=== PATIENT | female | born 1965 | race Caucasian/White ===

== ENCOUNTER 2020-12-12 17:02 | Inpatient (IN) | payer OTHER ==
[2020-12-12] MEDS ORDERED: DEXAMETHASONE SOD PHOSPHATE 10 MG/1 ML VIAL IVPUSH ONE (17:28)
[2020-12-12] MEDS ORDERED: DEXAMETHASONE SOD PHOSPHATE 10 MG/1 ML VIAL ONE (17:28)
[2020-12-12 17:44] LABS: BASO % 0.4 % (0-2.0); HEMOGLOBIN 11.8 GM/dL (10.7-15.3); LYMPH % 3.9 % (8-40); MCH 26.6 pg (25.7-33.7); MCHC 32.7 g/dl (32.0-36.0); MEAN CELL VOLUME 81.2 fl (80-96); MEAN PLT VOLUME 8.7 fl (7.5-11.1); MONO % 2.6 % (3.8-10.2); NEUT % 93.1 % (42.8-82.8); PLATELET COUNT 209 K/MM3 (134-434); RBC 4.44 M/mm3 (3.60-5.2); VENOUS BASE EXCESS -2.9 mmol/L (-2-2); VENOUS O2 SATURATION 59.4 % (70-80); VENOUS PCO2 41.3 mmHg (38-52); VENOUS PH 7.353 (7.310-7.410)
[2020-12-12 17:58] LABS: CHLORIDE 105 mmol/L (98-107); INR 0.94 (0.83-1.09); POTASSIUM 4.9 mmol/L (3.5-5.1); PROTHROMBIN TIME (PATIENT) 11.6 SEC (9.7-13.0); SODIUM 138 mmol/L (136-145)
[2020-12-12 18:00] LABS: CALCIUM 8.1 mg/dL (8.5-10.1)
[2020-12-12 18:01] LABS: ACTIVATED PTT 31.5 SECONDS (25.2-36.5); ALBUMIN 3.2 g/dl (3.4-5.0); ANION GAP 8 MMOL/L (8-16); BLOOD UREA NITROGEN 24.4 mg/dL (7-18); CO2 25 mmol/L (21-32); GLUCOSE,RANDOM 143 mg/dL (74-106)
[2020-12-12 18:03] LABS: BILIRUBIN,DIRECT 0.2 mg/dL (0.0-0.2)
[2020-12-12 18:04] LABS: CREATININE 1.1 mg/dL (0.55-1.3); SGOT/AST 65 U/L (15-37); SGPT/ALT 44 U/L (13-61)
[2020-12-12 18:05] LABS: BILIRUBIN,TOTAL 0.4 mg/dL (0.2-1); LDH 673 U/L (84-246); TOT PROT 7.6 g/dl (6.4-8.2)
[2020-12-12 18:06] LABS: ALK PHOS 113 U/L (45-117)
[2020-12-12] MEDS ORDERED: ONDANSETRON 4 MG/2 ML VIAL IVPUSH ONE (18:29)
[2020-12-12] MEDS ORDERED: LACTATED RINGERS SOLUTION 1000 ML INFUS.BAG IV ONE (18:30)
[2020-12-12] MEDS ORDERED: ENOXAPARIN NA (PORCINE) 40 MG/0.4 ML DISP.SYRIN SQ ONE ×2 (18:54→19:48)
[2020-12-12] MEDS ORDERED: ONDANSETRON 4 MG/2 ML VIAL ONE (19:07)
[2020-12-12 19:35] LABS: ANISOCYTOSIS 2+; MACROCYTOSIS 0; OVALOCYTE 1+; PLATELET ESTIMATE NORMAL
[2020-12-12 20:33] LABS: ARTERIAL BLD GAS O2 SATURATION 46.9 mmHg (95-98); ARTERIAL BLOOD GAS BASE EXCESS -4.1 mmol/L (-2-2)
[2020-12-12 20:39] LABS: ARTERIAL BLOOD GAS PO2 25.9 mmHg (80-100)
[2020-12-12 20:42] LABS: EPI CELLS 3 /uL (0-25.1); HYALINE CASTS 1 /uL (0-3.1); PH,URINE 5.5 (5.0-8.0); URINE APPEARANCE CLOUDY; URINE BACTERIA >9,000 /uL (0-1359); URINE BILIRUBIN NEGATIVE (NEGATIVE); URINE COLOR YELLOW; URINE GLUCOSE (UA) NEGATIVE (NEGATIVE); URINE KETONE NEGATIVE (NEGATIVE); URINE LEUK ESTERASE 2+ (NEGATIVE); URINE NITRITE POSITIVE (NEGATIVE); URINE PROTEIN 1+ (NEGATIVE); URINE RBC 484 /uL (0-23.9); URINE UROBILINOGEN 0.2 mg/dL (0.2-1.0); URINE WBC 293 /uL (0-25.8)
[2020-12-12] MEDS: CHLORHEXIDINE GLUCONATE 4% CLEANSER FOR DECOLONIZATION TP SCH (23:41)
[2020-12-12] MEDS: MUPIROCIN 2% TOPICAL OINTMENT FOR DECOLONIZATION NS SCH (23:42)
[2020-12-13 06:45] LABS: BASO % 0.1 % (0-2.0); HEMATOCRIT 33.2 % (32.4-45.2); HEMOGLOBIN 10.9 GM/dL (10.7-15.3); LYMPH % 7.6 % (8-40); MCH 26.4 pg (25.7-33.7); MCHC 32.7 g/dl (32.0-36.0); MEAN CELL VOLUME 80.6 fl (80-96); MEAN PLT VOLUME 8.4 fl (7.5-11.1); MONO % 5.5 % (3.8-10.2); NEUT % 86.8 % (42.8-82.8); PLATELET COUNT 212 K/MM3 (134-434); RBC 4.12 M/mm3 (3.60-5.2); RDW 16.7 % (11.6-15.6); WHITE BLOOD COUNT 4.9 K/mm3 (4.0-10.0)
[2020-12-13 06:52] LABS: INR 1.02 (0.83-1.09); PROTHROMBIN TIME (PATIENT) 12.5 SEC (9.7-13.0)
[2020-12-13] MEDS ORDERED: GABAPENTIN 300 MG CAPSULE PO ONE (07:00)
[2020-12-13] MEDS ORDERED: DEXAMETHASONE SOD PHOSPHATE 4 MG/1 ML VIAL IVPUSH ONE (07:00)
[2020-12-13] MEDS ORDERED: PANTOPRAZOLE SODIUM 40 MG VIAL IVPUSH ONE (07:00)
[2020-12-13 07:07] LABS: POTASSIUM 4.9 mmol/L (3.5-5.1)
[2020-12-13 07:14] LABS: ALBUMIN 2.8 g/dl (3.4-5.0); BLOOD UREA NITROGEN 21.6 mg/dL (7-18)
[2020-12-13 07:16] LABS: BILIRUBIN,TOTAL 0.5 mg/dL (0.2-1)
[2020-12-13 07:18] LABS: CREATININE 0.8 mg/dL (0.55-1.3)
[2020-12-13] MEDS ORDERED: CEFTRIAXONE 1 GM in DEXTROSE 5%-WATER - 50 ML IVPB ONE (09:15)
[2020-12-13] MEDS ORDERED: cefTRIAXone SODIUM 1 GM VIAL ONE (10:35)
[2020-12-13] MEDS ORDERED: DEXTROSE 5%-WATER - 50 ML IVPB ONE (10:35)
[2020-12-13] MEDS: MUPIROCIN 2% TOPICAL OINTMENT FOR DECOLONIZATION NS SCH ×2 (10:45→21:12)
[2020-12-13] MEDS ORDERED: PT OWN MED DRAWER 7, Y5N ONE (10:49)
[2020-12-13] MEDS: HYDROXYCHLOROQUINE SO4 200 MG TABLET (FP) PO SCH (11:45)
[2020-12-13] MEDS ORDERED: REMDESIVIR 200 MG in SODIUM CHLORIDE 210 ML IVPB ONE (15:00)
[2020-12-13] MEDS: ENOXAPARIN NA (PORCINE) 40 MG/0.4 ML DISP.SYRIN SQ SCH (15:12)
[2020-12-13] MEDS ORDERED: ALBUTEROL SO4 2.5/IPRATROPIUM 0.5 INH SOL 3 ML VIAL.NEB. NEB SCH (16:00)
[2020-12-13] MEDS: CHLORHEXIDINE GLUCONATE 4% CLEANSER FOR DECOLONIZATION TP SCH (21:08)
[2020-12-13] MEDS: BUDESONIDE/FORMETEROL FUMARATE 160/4.5 mcg INHALER IH SCH (21:12)
[2020-12-13] MEDS: ALBUTEROL SO4 HFA INHALER IH SCH ×2 (21:39→21:40)
[2020-12-14 07:01] LABS: BASO % 0.1 % (0-2.0); HEMATOCRIT 33.4 % (32.4-45.2); LYMPH % 7.4 % (8-40); MCH 26.8 pg (25.7-33.7); MCHC 32.8 g/dl (32.0-36.0); MEAN CELL VOLUME 81.5 fl (80-96); MEAN PLT VOLUME 8.7 fl (7.5-11.1); MONO % 3.6 % (3.8-10.2); NEUT % 88.9 % (42.8-82.8); PLATELET COUNT 267 K/MM3 (134-434); RDW 16.6 % (11.6-15.6); WHITE BLOOD COUNT 7.5 K/mm3 (4.0-10.0)
[2020-12-14 07:51] LABS: POTASSIUM 4.7 mmol/L (3.5-5.1)
[2020-12-14 08:25] LABS: ALBUMIN 2.7 g/dl (3.4-5.0); BLOOD UREA NITROGEN 26.1 mg/dL (7-18); CREATININE 0.8 mg/dL (0.55-1.3)
[2020-12-14 08:27] LABS: BILIRUBIN,TOTAL 0.4 mg/dL (0.2-1); MAGNESIUM 2.3 mg/dL (1.8-2.4); TOT PROT 6.8 g/dl (6.4-8.2)
[2020-12-14 08:28] LABS: PHOSPHOROUS 2.9 mg/dL (2.5-4.9)
[2020-12-14] MEDS ORDERED: PT OWN MED DRAWER 7, Y5N ONE ×3 (09:11→15:28)
[2020-12-14] MEDS ORDERED: DEXTROSE 5%-WATER - 50 ML IVPB ONE (09:12)
[2020-12-14] MEDS ORDERED: cefTRIAXone SODIUM 1 GM VIAL ONE (09:12)
[2020-12-14] MEDS: DEXAMETHASONE SOD PHOSPHATE 4 MG/1 ML VIAL IVPUSH SCH (09:17)
[2020-12-14] MEDS: ENOXAPARIN NA (PORCINE) 40 MG/0.4 ML DISP.SYRIN SQ SCH (09:17)
[2020-12-14] MEDS: CEFTRIAXONE 1 GM in DEXTROSE 5%-WATER - 50 ML IVPB SCH (09:17)
[2020-12-14] MEDS: HYDROXYCHLOROQUINE SO4 200 MG TABLET (FP) PO SCH (09:18)
[2020-12-14] MEDS: BUDESONIDE/FORMETEROL FUMARATE 160/4.5 mcg INHALER IH SCH ×2 (09:19→22:01)
[2020-12-14] MEDS: MUPIROCIN 2% TOPICAL OINTMENT FOR DECOLONIZATION NS SCH ×2 (09:19→22:01)
[2020-12-14] MEDS ORDERED: IBUPROFEN 600 MG TABLET (FP) PO PRN (12:03)
[2020-12-14] MEDS ORDERED: ENOXAPARIN NA (PORCINE) 40 MG/0.4 ML DISP.SYRIN SQ ONE (12:25)
[2020-12-14] MEDS: COLCHICINE 0.6 MG CAP PO SCH (14:32)
[2020-12-14] MEDS: azaTHIOprine 50 MG TABLET PO SCH (14:33)
[2020-12-14] MEDS: REMDESIVIR 100 MG in SODIUM CHLORIDE 230 ML IVPB SCH (14:55)
[2020-12-14] MEDS: ENOXAPARIN NA (PORCINE) 80 MG/0.8 ML DISP.SYRIN SQ SCH (22:00)
[2020-12-14] MEDS: CHLORHEXIDINE GLUCONATE 4% CLEANSER FOR DECOLONIZATION TP SCH (22:01)
[2020-12-14] MEDS: ALBUTEROL SO4 HFA INHALER IH SCH (22:01)
[2020-12-14] MEDS ORDERED: SODIUM CHLORIDE NASAL SPRAY 44 ML BOTTLE NS PRN (22:19)
[2020-12-15] MEDS ORDERED: ONDANSETRON 4 MG/2 ML VIAL ONE (00:26)
[2020-12-15] MEDS: TRIMETHOBENZAMIDE HCL 200MG/2ML INJ IM PRN ×2 (00:28→09:25)
[2020-12-15] MEDS: MAGNESIUM HYDROX 2400MG/30ML ORAL SUSPENSION 30 ML CUP PO PRN ×2 (03:18→21:58)
[2020-12-15] MEDS: guaiFENesin 200 MG/10 ML 10 ML UNIT-DOSE CUPS PO PRN ×2 (03:18→21:58)
[2020-12-15] MEDS: IBUPROFEN 400 MG TABLET (FP) PO PRN ×2 (03:33→18:45)
[2020-12-15] MEDS ORDERED: SODIUM CHLORIDE 500 ML IV STA ×2 (05:07→06:18)
[2020-12-15] MEDS: ALBUTEROL SO4 HFA INHALER IH SCH ×5 (06:06→21:58)
[2020-12-15 07:13] LABS: BASO % 0.6 % (0-2.0); EOS % 0.6 % (0-4.5); HEMATOCRIT 30.8 % (32.4-45.2); HEMOGLOBIN 10.1 GM/dL (10.7-15.3); LYMPH % 2.8 % (8-40); MCH 26.4 pg (25.7-33.7); MCHC 32.8 g/dl (32.0-36.0); MEAN CELL VOLUME 80.3 fl (80-96); MONO % 1.4 % (3.8-10.2); NEUT % 94.6 % (42.8-82.8); PLATELET COUNT 278 K/MM3 (134-434); RBC 3.83 M/mm3 (3.60-5.2); RDW 16.8 % (11.6-15.6); WHITE BLOOD COUNT 7.5 K/mm3 (4.0-10.0)
[2020-12-15 07:32] LABS: POTASSIUM 4.1 mmol/L (3.5-5.1)
[2020-12-15 07:42] LABS: ALBUMIN 2.4 g/dl (3.4-5.0); BLOOD UREA NITROGEN 27.1 mg/dL (7-18); CALCIUM 7.6 mg/dL (8.5-10.1); MAGNESIUM 2.3 mg/dL (1.8-2.4)
[2020-12-15 07:45] LABS: CREATININE 0.8 mg/dL (0.55-1.3); PHOSPHOROUS 2.8 mg/dL (2.5-4.9)
[2020-12-15 07:47] LABS: BILIRUBIN,TOTAL 1.3 mg/dL (0.2-1); TOT PROT 6.1 g/dl (6.4-8.2)
[2020-12-15] MEDS ORDERED: DEXTROSE 5%-WATER - 50 ML IVPB ONE (08:51)
[2020-12-15] MEDS ORDERED: cefTRIAXone SODIUM 1 GM VIAL ONE (08:51)
[2020-12-15] MEDS ORDERED: PT OWN MED DRAWER 7, Y5N ONE ×3 (08:54→18:43)
[2020-12-15] MEDS ORDERED: ENOXAPARIN NA (PORCINE) 80 MG/0.8 ML DISP.SYRIN SQ SCH (09:00)
[2020-12-15] MEDS: CEFTRIAXONE 1 GM in DEXTROSE 5%-WATER - 50 ML IVPB SCH (09:19)
[2020-12-15] MEDS: ENOXAPARIN NA (PORCINE) 80 MG/0.8 ML DISP.SYRIN SQ SCH ×2 (09:21→21:57)
[2020-12-15] MEDS: DEXAMETHASONE SOD PHOSPHATE 4 MG/1 ML VIAL IVPUSH SCH (09:22)
[2020-12-15] MEDS: HYDROXYCHLOROQUINE SO4 200 MG TABLET (FP) PO SCH (09:23)
[2020-12-15] MEDS: MUPIROCIN 2% TOPICAL OINTMENT FOR DECOLONIZATION NS SCH ×2 (09:24→21:58)
[2020-12-15] MEDS: COLCHICINE 0.6 MG CAP PO SCH (09:24)
[2020-12-15] MEDS: BUDESONIDE/FORMETEROL FUMARATE 160/4.5 mcg INHALER IH SCH ×2 (09:25→21:58)
[2020-12-15 09:51] LABS: ANISOCYTOSIS 0; MACROCYTOSIS 0; PLATELET ESTIMATE NORMAL
[2020-12-15] MEDS: azaTHIOprine 50 MG TABLET PO SCH (11:55)
[2020-12-15] MEDS ORDERED: SODIUM CHLORIDE 1,000 ML IV ONE (11:56)
[2020-12-15] MEDS: SODIUM CHLORIDE 1,000 ML IV SCH (12:06)
[2020-12-15] MEDS: REMDESIVIR 100 MG in SODIUM CHLORIDE 230 ML IVPB SCH (14:57)
[2020-12-15] MEDS ORDERED: TOCILIZUMAB (ACTEMRA) 200 MG/10 ML VIAL IVPB ONE (17:15)
[2020-12-15] MEDS ORDERED: TOCILIZUMAB 600 MG in SODIUM CHLORIDE 70 ML IVPB ONE (18:00)
[2020-12-15] MEDS: CHLORHEXIDINE GLUCONATE 4% CLEANSER FOR DECOLONIZATION TP SCH (21:58)
[2020-12-16] MEDS ORDERED: ONDANSETRON 4 MG/2 ML VIAL IVPUSH ONE (00:18)
[2020-12-16 07:36] LABS: HEMATOCRIT 28.8 % (32.4-45.2); HEMOGLOBIN 9.4 GM/dL (10.7-15.3); MCH 26.6 pg (25.7-33.7); MCHC 32.5 g/dl (32.0-36.0); MEAN CELL VOLUME 81.9 fl (80-96); MEAN PLT VOLUME 8.5 fl (7.5-11.1); PLATELET COUNT 300 K/MM3 (134-434); RBC 3.52 M/mm3 (3.60-5.2); RDW 16.4 % (11.6-15.6); WHITE BLOOD COUNT 5.9 K/mm3 (4.0-10.0)
[2020-12-16 07:57] LABS: POTASSIUM 4.6 mmol/L (3.5-5.1)
[2020-12-16 07:59] LABS: CALCIUM 7.7 mg/dL (8.5-10.1)
[2020-12-16 08:00] LABS: ALBUMIN 2.1 g/dl (3.4-5.0); BLOOD UREA NITROGEN 24.1 mg/dL (7-18)
[2020-12-16 08:03] LABS: CREATININE 0.6 mg/dL (0.55-1.3)
[2020-12-16 08:05] LABS: TOT PROT 5.6 g/dl (6.4-8.2)
[2020-12-16 08:36] LABS: BILIRUBIN,TOTAL 0.7 mg/dL (0.2-1)
[2020-12-16] MEDS ORDERED: PT OWN MED DRAWER 7, Y5N ONE ×2 (09:23→15:41)
[2020-12-16] MEDS ORDERED: DEXTROSE 5%-WATER - 50 ML IVPB ONE (09:24)
[2020-12-16] MEDS ORDERED: cefTRIAXone SODIUM 1 GM VIAL ONE (09:24)
[2020-12-16] MEDS: DEXAMETHASONE SOD PHOSPHATE 4 MG/1 ML VIAL IVPUSH SCH (09:26)
[2020-12-16] MEDS: CEFTRIAXONE 1 GM in DEXTROSE 5%-WATER - 50 ML IVPB SCH (09:26)
[2020-12-16] MEDS: ENOXAPARIN NA (PORCINE) 80 MG/0.8 ML DISP.SYRIN SQ SCH ×2 (09:27→21:35)
[2020-12-16] MEDS: COLCHICINE 0.6 MG CAP PO SCH (09:28)
[2020-12-16] MEDS: azaTHIOprine 50 MG TABLET PO SCH (09:28)
[2020-12-16] MEDS: ALBUTEROL SO4 HFA INHALER IH SCH ×4 (09:29→21:25)
[2020-12-16] MEDS: MUPIROCIN 2% TOPICAL OINTMENT FOR DECOLONIZATION NS SCH ×2 (09:29→23:07)
[2020-12-16] MEDS: HYDROXYCHLOROQUINE SO4 200 MG TABLET (FP) PO SCH (09:29)
[2020-12-16] MEDS: BUDESONIDE/FORMETEROL FUMARATE 160/4.5 mcg INHALER IH SCH ×2 (09:29→23:07)
[2020-12-16] MEDS: SODIUM CHLORIDE 1,000 ML IV SCH (12:20)
[2020-12-16] MEDS: REMDESIVIR 100 MG in SODIUM CHLORIDE 230 ML IVPB SCH (15:45)
[2020-12-16 21:29] LABS: ARTERIAL BLD GAS O2 SATURATION 93.2 mmHg (95-98); ARTERIAL BLOOD GAS BASE EXCESS -4.3 mmol/L (-2-2); ARTERIAL BLOOD GAS PO2 64.7 mmHg (80-100)
[2020-12-16 21:30] LABS: ALLENS TEST POSITIVE
[2020-12-16] MEDS ORDERED: FAMOTIDINE 20 MG TABLET PO SCH (22:00)
[2020-12-16] MEDS: CHLORHEXIDINE GLUCONATE 4% CLEANSER FOR DECOLONIZATION TP SCH (23:07)
[2020-12-17 02:32] LABS: MAGNESIUM 2.5 mg/dL (1.8-2.4)
[2020-12-17 02:34] LABS: PHOSPHOROUS 3.4 mg/dL (2.5-4.9)
[2020-12-17] MEDS ORDERED: ETOMIDATE 20 MG/10 ML AMPUL IVPUSH ONE ×2 (04:35→05:25)
[2020-12-17] MEDS ORDERED: PHENYLEPHRINE HCL 10 MG/1 ML SINGLE DOSE VIAL IVPB ONE ×2 (04:35→05:00)
[2020-12-17] MEDS ORDERED: SUCCINYLCHOLINE CHLORIDE 200 MG/10 ML VIAL IVPUSH ONE ×2 (04:35→05:23)
[2020-12-17] MEDS ORDERED: FENTANYL IVPB 500 MCG/100 ML BAG IVPB ONE (04:44)
[2020-12-17] MEDS ORDERED: MIDAZOLAM 100 MG/100 ML MG IVPB ONE (04:44)
[2020-12-17] MEDS ORDERED: FENTANYL NS IVPB 500 MCG/100 ML BAG IVPB SCH (04:45)
[2020-12-17] MEDS ORDERED: MIDAZOLAM HCL 2 MG/2 ML SINGLE DOSE VIAL IVPUSH ONE (04:50)
[2020-12-17] MEDS ORDERED: PROPOFOL 200 MG/20 ML VIAL IVPUSH ONE ×2 (04:50→05:42)
[2020-12-17] MEDS ORDERED: MIDAZOLAM 100 MG/100 ML MG IVPB SCH (06:15)
[2020-12-17 06:37] LABS: HEMATOCRIT 31.9 % (32.4-45.2); HEMOGLOBIN 10.2 GM/dL (10.7-15.3); MCH 26.8 pg (25.7-33.7); MCHC 32.1 g/dl (32.0-36.0); MEAN CELL VOLUME 83.6 fl (80-96); MEAN PLT VOLUME 8.2 fl (7.5-11.1); PLATELET COUNT 409 K/MM3 (134-434); RBC 3.81 M/mm3 (3.60-5.2); WHITE BLOOD COUNT 10.6 K/mm3 (4.0-10.0)
[2020-12-17 07:24] LABS: POTASSIUM 4.8 mmol/L (3.5-5.1)
[2020-12-17 07:26] LABS: ALBUMIN 2.2 g/dl (3.4-5.0); CALCIUM 7.7 mg/dL (8.5-10.1)
[2020-12-17 07:29] LABS: CREATININE 0.6 mg/dL (0.55-1.3)
[2020-12-17 07:31] LABS: TOT PROT 5.9 g/dl (6.4-8.2)
[2020-12-17 07:59] LABS: BILIRUBIN,TOTAL 0.3 mg/dL (0.2-1)
[2020-12-17 08:08] LABS: ARTERIAL BLD GAS O2 SATURATION 76.8 mmHg (95-98); ARTERIAL BLOOD GAS BASE EXCESS -13.4 mmol/L (-2-2); ARTERIAL BLOOD GAS PO2 59.3 mmHg (80-100)
[2020-12-17] MEDS: PROPOFOL 1,000,000 MCG/100 ML VIAL IVPB SCH (08:10)
[2020-12-17] MEDS: VECURONIUM BROMIDE 100 MG/100 ML BAG IVPB SCH (08:13)
[2020-12-17 08:16] LABS: ALLENS TEST POSITIVE
[2020-12-17 08:18] LABS: ARTERIAL BLOOD GAS pH 7.037 (7.350-7.450); VENT RATE 12
[2020-12-17] MEDS ORDERED: PT OWN MED DRAWER 7, Y5N ONE ×2 (09:43→10:20)
[2020-12-17] MEDS ORDERED: cefTRIAXone SODIUM 1 GM VIAL ONE (09:43)
[2020-12-17] MEDS ORDERED: DEXTROSE 5%-WATER - 50 ML IVPB ONE (09:44)
[2020-12-17] MEDS: HYDROXYCHLOROQUINE SO4 200 MG TABLET (FP) PO SCH (10:13)
[2020-12-17] MEDS: FAMOTIDINE 20 MG/50 ML IVPB 20 MG/50 ML MG IVPB SCH ×2 (10:13→22:41)
[2020-12-17] MEDS: COLCHICINE 0.6 MG CAP PO SCH (10:15)
[2020-12-17] MEDS: DEXAMETHASONE SOD PHOSPHATE 4 MG/1 ML VIAL IVPUSH SCH (10:16)
[2020-12-17] MEDS: ENOXAPARIN NA (PORCINE) 80 MG/0.8 ML DISP.SYRIN SQ SCH ×2 (10:17→22:40)
[2020-12-17] MEDS: CEFTRIAXONE 1 GM in DEXTROSE 5%-WATER - 50 ML IVPB SCH (10:22)
[2020-12-17] MEDS: MUPIROCIN 2% TOPICAL OINTMENT FOR DECOLONIZATION NS SCH (10:30)
[2020-12-17] MEDS: ALBUTEROL SO4 HFA INHALER IH SCH ×4 (11:28→22:28)
[2020-12-17] MEDS: BUDESONIDE/FORMETEROL FUMARATE 160/4.5 mcg INHALER IH SCH ×2 (11:29→22:29)
[2020-12-17] MEDS: SODIUM CHLORIDE 1,000 ML IV SCH (12:00)
[2020-12-17] MEDS ORDERED: SODIUM CHLORIDE 500 ML IV STA (12:23)
[2020-12-17] MEDS ORDERED: MAGNESIUM HYDROX 2400MG/30ML ORAL SUSPENSION 30 ML CUP NGT PRN (12:26)
[2020-12-17] MEDS ORDERED: VASOPRESSIN 20 UNITS/ML VIAL IV ONE (13:14)
[2020-12-17] MEDS: azaTHIOprine 50 MG TABLET NGT SCH (13:17)
[2020-12-17] MEDS: VASOPRESSIN 40 UNITS in SODIUM CHLORIDE 98 ML IVPB SCH (13:21)
[2020-12-17] MEDS: REMDESIVIR 100 MG in SODIUM CHLORIDE 230 ML IVPB SCH (15:21)
[2020-12-17 18:25] LABS: MAGNESIUM 2.1 mg/dL (1.8-2.4)
[2020-12-17 18:28] LABS: PHOSPHOROUS 4.7 mg/dL (2.5-4.9)
[2020-12-17 20:31] LABS: ARTERIAL BLD GAS O2 SATURATION 88.3 mmHg (95-98); ARTERIAL BLOOD GAS BASE EXCESS -8.5 mmol/L (-2-2); ARTERIAL BLOOD GAS PO2 64.5 mmHg (80-100); ARTERIAL BLOOD GAS pH 7.221 (7.350-7.450)
[2020-12-17 20:32] LABS: ALLENS TEST POSITIVE
[2020-12-17 20:33] LABS: VENT MODE A/C; VENT RATE 28
[2020-12-17] MEDS: CHLORHEXIDINE GLUCONATE 4% CLEANSER FOR DECOLONIZATION TP SCH (22:28)
[2020-12-18 07:04] LABS: HEMATOCRIT 29.9 % (32.4-45.2); HEMOGLOBIN 9.7 GM/dL (10.7-15.3); MCH 27.1 pg (25.7-33.7); MCHC 32.4 g/dl (32.0-36.0); MEAN CELL VOLUME 83.6 fl (80-96); MEAN PLT VOLUME 8.4 fl (7.5-11.1); PLATELET COUNT 330 K/MM3 (134-434); RBC 3.58 M/mm3 (3.60-5.2); RDW 16.8 % (11.6-15.6); WHITE BLOOD COUNT 7.8 K/mm3 (4.0-10.0)
[2020-12-18 07:18] LABS: POTASSIUM 4.9 mmol/L (3.5-5.1)
[2020-12-18 07:24] LABS: ALBUMIN 2.1 g/dl (3.4-5.0); BLOOD UREA NITROGEN 35.8 mg/dL (7-18); CALCIUM 7.9 mg/dL (8.5-10.1)
[2020-12-18 07:27] LABS: CREATININE 0.8 mg/dL (0.55-1.3)
[2020-12-18 07:28] LABS: TOT PROT 5.6 g/dl (6.4-8.2)
[2020-12-18 07:49] LABS: BILIRUBIN,TOTAL 0.6 mg/dL (0.2-1)
[2020-12-18] MEDS ORDERED: DEXTROSE 5%-WATER - 50 ML IVPB ONE (09:41)
[2020-12-18] MEDS ORDERED: PT OWN MED DRAWER 7, Y5N ONE (09:41)
[2020-12-18] MEDS ORDERED: cefTRIAXone SODIUM 1 GM VIAL ONE (09:41)
[2020-12-18] MEDS ORDERED: VASOPRESSIN 20 UNITS/ML VIAL IV ONE ×2 (10:00→18:18)
[2020-12-18] MEDS: ENOXAPARIN NA (PORCINE) 80 MG/0.8 ML DISP.SYRIN SQ SCH ×2 (10:02→22:31)
[2020-12-18] MEDS: FAMOTIDINE 20 MG/50 ML IVPB 20 MG/50 ML MG IVPB SCH ×2 (10:02→22:31)
[2020-12-18] MEDS: DEXAMETHASONE SOD PHOSPHATE 4 MG/1 ML VIAL IVPUSH SCH (10:02)
[2020-12-18] MEDS: COLCHICINE 0.6 MG CAP PO SCH (10:02)
[2020-12-18] MEDS: CEFTRIAXONE 1 GM in DEXTROSE 5%-WATER - 50 ML IVPB SCH (10:03)
[2020-12-18] MEDS: HYDROXYCHLOROQUINE 200 MG/8 ML ORAL SUSPENSION NGT SCH (10:03)
[2020-12-18] MEDS ORDERED: FUROSEMIDE 40 MG/4 ML INJECTABLE VIAL IVPUSH ONE (11:30)
[2020-12-18] MEDS: PROPOFOL 1,000,000 MCG/100 ML VIAL IVPB SCH (12:04)
[2020-12-18] MEDS: BUDESONIDE/FORMETEROL FUMARATE 160/4.5 mcg INHALER IH SCH (12:04)
[2020-12-18] MEDS: azaTHIOprine 50 MG TABLET NGT SCH (14:45)
[2020-12-18] MEDS: FENTANYL IVPB 500 MCG/100 ML BAG IVPB SCH (15:16)
[2020-12-18] MEDS: VASOPRESSIN 40 UNITS in SODIUM CHLORIDE 98 ML IVPB SCH (15:30)
[2020-12-18] MEDS: ALBUTEROL SO4 HFA INHALER IH SCH (19:39)
[2020-12-18] MEDS: azaTHIOprine 50 MG TABLET PO SCH (19:39)
[2020-12-18] MEDS ORDERED: MIDAZOLAM 100 MG/100 ML MG IVPB ONE (19:49)
[2020-12-18] MEDS: CHLORHEXIDINE GLUCONATE 4% CLEANSER FOR DECOLONIZATION TP SCH (22:31)
[2020-12-19] MEDS: PROPOFOL 1,000,000 MCG/100 ML VIAL IVPB SCH (08:00)
[2020-12-19 08:10] LABS: HEMATOCRIT 29.8 % (32.4-45.2); HEMOGLOBIN 9.4 GM/dL (10.7-15.3); MCH 26.4 pg (25.7-33.7); MCHC 31.7 g/dl (32.0-36.0); MEAN CELL VOLUME 83.3 fl (80-96); MEAN PLT VOLUME 8.4 fl (7.5-11.1); PLATELET COUNT 315 K/MM3 (134-434); RBC 3.58 M/mm3 (3.60-5.2); RDW 17.1 % (11.6-15.6); WHITE BLOOD COUNT 7.6 K/mm3 (4.0-10.0)
[2020-12-19 08:29] LABS: POTASSIUM 4.6 mmol/L (3.5-5.1)
[2020-12-19 08:37] LABS: BLOOD UREA NITROGEN 27.9 mg/dL (7-18); CALCIUM 8.2 mg/dL (8.5-10.1)
[2020-12-19 08:38] LABS: MAGNESIUM 2.3 mg/dL (1.8-2.4)
[2020-12-19 08:40] LABS: CREATININE 0.6 mg/dL (0.55-1.3); PHOSPHOROUS 2.9 mg/dL (2.5-4.9)
[2020-12-19] MEDS ORDERED: PT OWN MED DRAWER 7, Y5N ONE (09:22)
[2020-12-19] MEDS ORDERED: cefTRIAXone SODIUM 1 GM VIAL ONE (09:23)
[2020-12-19] MEDS ORDERED: DEXTROSE 5%-WATER - 50 ML IVPB ONE (09:23)
[2020-12-19] MEDS: ENOXAPARIN NA (PORCINE) 80 MG/0.8 ML DISP.SYRIN SQ SCH ×2 (09:41→21:31)
[2020-12-19] MEDS: DEXAMETHASONE SOD PHOSPHATE 4 MG/1 ML VIAL IVPUSH SCH (09:42)
[2020-12-19] MEDS: CEFTRIAXONE 1 GM in DEXTROSE 5%-WATER - 50 ML IVPB SCH (09:43)
[2020-12-19] MEDS: FAMOTIDINE 20 MG/50 ML IVPB 20 MG/50 ML MG IVPB SCH ×2 (09:50→21:31)
[2020-12-19] MEDS: azaTHIOprine 50 MG TABLET NGT SCH (09:51)
[2020-12-19] MEDS: HYDROXYCHLOROQUINE 200 MG/8 ML ORAL SUSPENSION NGT SCH (09:57)
[2020-12-19] MEDS: FENTANYL IVPB 500 MCG/100 ML BAG IVPB SCH (10:00)
[2020-12-19] MEDS: COLCHICINE 0.6 MG CAP PO SCH (10:12)
[2020-12-19] MEDS ORDERED: MIDAZOLAM 100 MG/100 ML MG IVPB ONE ×2 (13:32→20:21)
[2020-12-19] MEDS ORDERED: TRIPLE LUMEN FLUSH 4 ML ML IVPUSH PRN (14:01)
[2020-12-19] MEDS ORDERED: VASOPRESSIN 20 UNITS/ML VIAL IV ONE (14:53)
[2020-12-19] MEDS: REMDESIVIR 100 MG in SODIUM CHLORIDE 230 ML IVPB SCH (15:00)
[2020-12-19] MEDS: VASOPRESSIN 40 UNITS in SODIUM CHLORIDE 98 ML IVPB SCH (15:00)
[2020-12-19] MEDS: VECURONIUM BROMIDE 100 MG/100 ML BAG IVPB SCH (15:00)
[2020-12-19] MEDS: CHLORHEXIDINE GLUCONATE 4% CLEANSER FOR DECOLONIZATION TP SCH (21:31)
[2020-12-20] MEDS: MIDAZOLAM 100 MG/100 ML MG IVPB SCH (07:00)
[2020-12-20] MEDS ORDERED: MIDAZOLAM 100 MG/100 ML MG IVPB ONE (07:16)
[2020-12-20 07:42] LABS: BASO % 0.1 % (0-2.0); EOS % 1.3 % (0-4.5); HEMATOCRIT 28.4 % (32.4-45.2); HEMOGLOBIN 9.2 GM/dL (10.7-15.3); MCH 26.6 pg (25.7-33.7); MCHC 32.4 g/dl (32.0-36.0); MEAN CELL VOLUME 82.1 fl (80-96); MEAN PLT VOLUME 8.1 fl (7.5-11.1); MONO % 2.4 % (3.8-10.2); NEUT % 93.2 % (42.8-82.8); PLATELET COUNT 269 K/MM3 (134-434); RBC 3.46 M/mm3 (3.60-5.2); RDW 16.7 % (11.6-15.6); WHITE BLOOD COUNT 8.8 K/mm3 (4.0-10.0)
[2020-12-20] MEDS: PROPOFOL 1,000,000 MCG/100 ML VIAL IVPB SCH (07:42)
[2020-12-20 08:06] LABS: POTASSIUM 4.6 mmol/L (3.5-5.1)
[2020-12-20 08:15] LABS: BLOOD UREA NITROGEN 26.9 mg/dL (7-18); MAGNESIUM 2.3 mg/dL (1.8-2.4)
[2020-12-20 08:18] LABS: CREATININE 0.5 mg/dL (0.55-1.3)
[2020-12-20 08:19] LABS: PHOSPHOROUS 2.6 mg/dL (2.5-4.9)
[2020-12-20] MEDS ORDERED: PT OWN MED DRAWER 7, Y5N ONE ×2 (09:55→18:34)
[2020-12-20] MEDS ORDERED: DEXTROSE 5%-WATER - 50 ML IVPB ONE (09:56)
[2020-12-20] MEDS ORDERED: cefTRIAXone SODIUM 1 GM VIAL ONE (09:56)
[2020-12-20] MEDS: ENOXAPARIN NA (PORCINE) 80 MG/0.8 ML DISP.SYRIN SQ SCH ×2 (09:58→21:08)
[2020-12-20] MEDS: CEFTRIAXONE 1 GM in DEXTROSE 5%-WATER - 50 ML IVPB SCH (09:58)
[2020-12-20] MEDS: HYDROXYCHLOROQUINE 200 MG/8 ML ORAL SUSPENSION NGT SCH (09:58)
[2020-12-20] MEDS: FAMOTIDINE 20 MG/50 ML IVPB 20 MG/50 ML MG IVPB SCH ×2 (09:58→21:08)
[2020-12-20] MEDS: COLCHICINE 0.6 MG CAP PO SCH (09:59)
[2020-12-20] MEDS: DEXAMETHASONE SOD PHOSPHATE 4 MG/1 ML VIAL IVPUSH SCH (09:59)
[2020-12-20] MEDS: azaTHIOprine 50 MG TABLET NGT SCH (10:00)
[2020-12-20 10:28] LABS: ANISOCYTOSIS 0; HELMET CELLS 0; HOWELL-JOLLY BODIES 0; MACROCYTOSIS 0; OVALOCYTE 0; PLATELET ESTIMATE NORMAL; ROULEAU 0; SICKELED CELLS 0; TARGET CELLS 0; TEAR DROP CELLS 0; TOXIC GRANULATION 0
[2020-12-20] MEDS: REMDESIVIR 100 MG in SODIUM CHLORIDE 230 ML IVPB SCH (10:34)
[2020-12-20] MEDS: VASOPRESSIN 40 UNITS in SODIUM CHLORIDE 98 ML IVPB SCH (14:09)
[2020-12-20] MEDS: FENTANYL IVPB 500 MCG/100 ML BAG IVPB SCH ×2 (15:00→19:30)
[2020-12-20] MEDS: VECURONIUM BROMIDE 100 MG/100 ML BAG IVPB SCH (19:00)
[2020-12-20] MEDS: CHLORHEXIDINE GLUCONATE 4% CLEANSER FOR DECOLONIZATION TP SCH (21:07)
[2020-12-21] MEDS: MIDAZOLAM 100 MG/100 ML MG IVPB SCH ×2 (01:00→20:07)
[2020-12-21] MEDS: FENTANYL IVPB 500 MCG/100 ML BAG IVPB SCH ×2 (02:17→17:07)
[2020-12-21 07:56] LABS: BASO % 0.1 % (0-2.0); EOS % 0.9 % (0-4.5); HEMOGLOBIN 9.7 GM/dL (10.7-15.3); LYMPH % 3.3 % (8-40); MCH 26.7 pg (25.7-33.7); MCHC 32.4 g/dl (32.0-36.0); MEAN CELL VOLUME 82.4 fl (80-96); MEAN PLT VOLUME 8.5 fl (7.5-11.1); MONO % 2.8 % (3.8-10.2); NEUT % 92.9 % (42.8-82.8); PLATELET COUNT 286 K/MM3 (134-434); RBC 3.64 M/mm3 (3.60-5.2); RDW 16.9 % (11.6-15.6); WHITE BLOOD COUNT 10.7 K/mm3 (4.0-10.0)
[2020-12-21] MEDS ORDERED: POTASSIUM CHLORIDE 20 MEQ PREMIX IVPB 100 ML IVPB SCH (08:30)
[2020-12-21 08:31] LABS: POTASSIUM 4.2 mmol/L (3.5-5.1)
[2020-12-21 08:34] LABS: ALBUMIN 2.4 g/dl (3.4-5.0); BLOOD UREA NITROGEN 24.9 mg/dL (7-18); CALCIUM 7.9 mg/dL (8.5-10.1); MAGNESIUM 2.4 mg/dL (1.8-2.4)
[2020-12-21 08:36] LABS: CREATININE 0.5 mg/dL (0.55-1.3)
[2020-12-21 08:37] LABS: PHOSPHOROUS 2.4 mg/dL (2.5-4.9)
[2020-12-21 08:39] LABS: TOT PROT 5.7 g/dl (6.4-8.2)
[2020-12-21 08:44] LABS: BILIRUBIN,TOTAL 0.2 mg/dL (0.2-1)
[2020-12-21] MEDS: PROPOFOL 1,000,000 MCG/100 ML VIAL IVPB SCH (09:49)
[2020-12-21] MEDS: DEXAMETHASONE SOD PHOSPHATE 4 MG/1 ML VIAL IVPUSH SCH (09:50)
[2020-12-21] MEDS: ENOXAPARIN NA (PORCINE) 80 MG/0.8 ML DISP.SYRIN SQ SCH ×3 (09:50→22:37)
[2020-12-21] MEDS: FAMOTIDINE 20 MG/50 ML IVPB 20 MG/50 ML MG IVPB SCH ×2 (09:51→21:11)
[2020-12-21] MEDS: REMDESIVIR 100 MG in SODIUM CHLORIDE 230 ML IVPB SCH (10:21)
[2020-12-21] MEDS: azaTHIOprine 50 MG TABLET NGT SCH (10:30)
[2020-12-21] MEDS ORDERED: PT OWN MED DRAWER 7, Y5N ONE (10:44)
[2020-12-21] MEDS: COLCHICINE 0.6 MG CAP PO SCH (10:46)
[2020-12-21] MEDS: HYDROXYCHLOROQUINE 200 MG/8 ML ORAL SUSPENSION NGT SCH (10:46)
[2020-12-21 11:15] LABS: ANISOCYTOSIS 0; MACROCYTOSIS 0; PLATELET ESTIMATE NORMAL
[2020-12-21] MEDS: VASOPRESSIN 40 UNITS in SODIUM CHLORIDE 98 ML IVPB SCH (17:06)
[2020-12-21] MEDS: POLYETHYLENE GLYCOL 3350 119 GM BTL PO SCH (17:08)
[2020-12-21] MEDS: CHLORHEXIDINE GLUCONATE 4% CLEANSER FOR DECOLONIZATION TP SCH (21:11)
[2020-12-22] MEDS: FENTANYL IVPB 500 MCG/100 ML BAG IVPB SCH ×3 (01:00→16:41)
[2020-12-22] MEDS: VECURONIUM BROMIDE 100 MG/100 ML BAG IVPB SCH (06:00)
[2020-12-22] MEDS ORDERED: PT OWN MED DRAWER 7, Y5N ONE (09:13)
[2020-12-22] MEDS: HYDROXYCHLOROQUINE 200 MG/8 ML ORAL SUSPENSION NGT SCH (09:18)
[2020-12-22] MEDS: FAMOTIDINE 20 MG/50 ML IVPB 20 MG/50 ML MG IVPB SCH ×2 (09:18→21:01)
[2020-12-22] MEDS: POLYETHYLENE GLYCOL 3350 119 GM BTL PO SCH (09:18)
[2020-12-22] MEDS: azaTHIOprine 50 MG TABLET NGT SCH (09:19)
[2020-12-22] MEDS: DEXAMETHASONE SOD PHOSPHATE 4 MG/1 ML VIAL IVPUSH SCH (09:19)
[2020-12-22] MEDS: ENOXAPARIN NA (PORCINE) 80 MG/0.8 ML DISP.SYRIN SQ SCH ×2 (09:19→21:01)
[2020-12-22] MEDS: PROPOFOL 1,000,000 MCG/100 ML VIAL IVPB SCH (09:20)
[2020-12-22] MEDS: MIDAZOLAM 100 MG/100 ML MG IVPB SCH (09:20)
[2020-12-22] MEDS: REMDESIVIR 100 MG in SODIUM CHLORIDE 230 ML IVPB SCH (10:28)
[2020-12-22] MEDS: COLCHICINE 0.6 MG CAP PO SCH (10:28)
[2020-12-22] MEDS ORDERED: DOCUSATE NA 100 MG/10 ML UNIT-DOSE CUPS PO PRN (13:07)
[2020-12-22] MEDS: VASOPRESSIN 40 UNITS in SODIUM CHLORIDE 98 ML IVPB SCH (16:40)
[2020-12-22] MEDS: CHLORHEXIDINE GLUCONATE 4% CLEANSER FOR DECOLONIZATION TP SCH (21:01)
[2020-12-23] MEDS ORDERED: MIDAZOLAM 100 MG/100 ML MG IVPB ONE (00:32)
[2020-12-23] MEDS: FENTANYL IVPB 500 MCG/100 ML BAG IVPB SCH ×3 (03:00→23:00)
[2020-12-23] MEDS: MIDAZOLAM 100 MG/100 ML MG IVPB SCH ×2 (04:00→21:21)
[2020-12-23] MEDS: VECURONIUM BROMIDE 100 MG/100 ML BAG IVPB SCH (05:00)
[2020-12-23 07:48] LABS: POTASSIUM 4.8 mmol/L (3.5-5.1)
[2020-12-23 07:51] LABS: ALBUMIN 2.5 g/dl (3.4-5.0); CALCIUM 7.9 mg/dL (8.5-10.1)
[2020-12-23 07:52] LABS: BLOOD UREA NITROGEN 24.7 mg/dL (7-18)
[2020-12-23 07:54] LABS: CREATININE 0.4 mg/dL (0.55-1.3)
[2020-12-23 07:56] LABS: TOT PROT 5.6 g/dl (6.4-8.2)
[2020-12-23 08:03] LABS: BILIRUBIN,TOTAL 0.6 mg/dL (0.2-1)
[2020-12-23] MEDS ORDERED: PT OWN MED DRAWER 7, Y5N ONE ×2 (09:24→14:40)
[2020-12-23] MEDS: FAMOTIDINE 20 MG/50 ML IVPB 20 MG/50 ML MG IVPB SCH ×2 (09:32→21:25)
[2020-12-23] MEDS: ENOXAPARIN NA (PORCINE) 80 MG/0.8 ML DISP.SYRIN SQ SCH ×2 (09:32→21:25)
[2020-12-23] MEDS: DEXAMETHASONE SOD PHOSPHATE 4 MG/1 ML VIAL IVPUSH SCH (09:33)
[2020-12-23] MEDS: COLCHICINE 0.6 MG CAP PO SCH (09:34)
[2020-12-23] MEDS: POLYETHYLENE GLYCOL 3350 119 GM BTL PO SCH (09:44)
[2020-12-23] MEDS: azaTHIOprine 50 MG TABLET NGT SCH (14:42)
[2020-12-23] MEDS: HYDROXYCHLOROQUINE 200 MG/8 ML ORAL SUSPENSION NGT SCH (14:42)
[2020-12-23] MEDS: VASOPRESSIN 40 UNITS in SODIUM CHLORIDE 98 ML IVPB SCH (14:43)
[2020-12-23] MEDS: PROPOFOL 1,000,000 MCG/100 ML VIAL IVPB SCH (15:58)
[2020-12-23] MEDS: CHLORHEXIDINE GLUCONATE 4% CLEANSER FOR DECOLONIZATION TP SCH (21:26)
[2020-12-24] MEDS: MIDAZOLAM 100 MG/100 ML MG IVPB SCH ×2 (01:44→17:21)
[2020-12-24 07:47] LABS: POTASSIUM 4.6 mmol/L (3.5-5.1)
[2020-12-24 08:19] LABS: ALBUMIN 2.3 g/dl (3.4-5.0); BILIRUBIN,TOTAL 0.7 mg/dL (0.2-1); BLOOD UREA NITROGEN 23.8 mg/dL (7-18); CALCIUM 7.9 mg/dL (8.5-10.1); CREATININE 0.4 mg/dL (0.55-1.3); TOT PROT 5.4 g/dl (6.4-8.2)
[2020-12-24] MEDS ORDERED: PT OWN MED DRAWER 7, Y5N ONE (09:34)
[2020-12-24] MEDS: azaTHIOprine 50 MG TABLET NGT SCH (09:44)
[2020-12-24] MEDS: FENTANYL IVPB 500 MCG/100 ML BAG IVPB SCH ×2 (09:44→17:20)
[2020-12-24] MEDS: HYDROXYCHLOROQUINE 200 MG/8 ML ORAL SUSPENSION NGT SCH (09:45)
[2020-12-24] MEDS: ENOXAPARIN NA (PORCINE) 80 MG/0.8 ML DISP.SYRIN SQ SCH ×2 (09:45→21:27)
[2020-12-24] MEDS: FAMOTIDINE 20 MG/50 ML IVPB 20 MG/50 ML MG IVPB SCH ×2 (09:45→21:26)
[2020-12-24] MEDS: POLYETHYLENE GLYCOL 3350 119 GM BTL PO SCH (09:46)
[2020-12-24] MEDS: DEXAMETHASONE SOD PHOSPHATE 4 MG/1 ML VIAL IVPUSH SCH (09:46)
[2020-12-24] MEDS: COLCHICINE 0.6 MG CAP PO SCH (09:47)
[2020-12-24] MEDS: VECURONIUM BROMIDE 100 MG/100 ML BAG IVPB SCH (17:20)
[2020-12-24] MEDS: VASOPRESSIN 40 UNITS in SODIUM CHLORIDE 98 ML IVPB SCH (17:21)
[2020-12-24] MEDS: PROPOFOL 1,000,000 MCG/100 ML VIAL IVPB SCH (17:22)
[2020-12-24] MEDS: CHLORHEXIDINE GLUCONATE 4% CLEANSER FOR DECOLONIZATION TP SCH (21:18)
[2020-12-25] MEDS: FENTANYL IVPB 500 MCG/100 ML BAG IVPB SCH
[2020-12-25] MEDS: MIDAZOLAM 100 MG/100 ML MG IVPB SCH ×2 (06:14→10:36)
[2020-12-25 07:54] LABS: POTASSIUM 5.1 mmol/L (3.5-5.1)
[2020-12-25 07:56] LABS: CALCIUM 7.9 mg/dL (8.5-10.1)
[2020-12-25 07:57] LABS: ALBUMIN 2.4 g/dl (3.4-5.0); BLOOD UREA NITROGEN 28.7 mg/dL (7-18); MAGNESIUM 2.2 mg/dL (1.8-2.4)
[2020-12-25 08:00] LABS: CREATININE 0.5 mg/dL (0.55-1.3); PHOSPHOROUS 3.4 mg/dL (2.5-4.9)
[2020-12-25 08:02] LABS: BILIRUBIN,TOTAL 0.6 mg/dL (0.2-1); TOT PROT 5.6 g/dl (6.4-8.2)
[2020-12-25] MEDS ORDERED: PT OWN MED DRAWER 7, Y5N ONE (10:30)
[2020-12-25] MEDS: PROPOFOL 1,000,000 MCG/100 ML VIAL IVPB SCH (10:36)
[2020-12-25] MEDS: COLCHICINE 0.6 MG CAP PO SCH (10:37)
[2020-12-25] MEDS: azaTHIOprine 50 MG TABLET NGT SCH (10:37)
[2020-12-25] MEDS: POLYETHYLENE GLYCOL 3350 119 GM BTL PO SCH (10:38)
[2020-12-25] MEDS: ENOXAPARIN NA (PORCINE) 80 MG/0.8 ML DISP.SYRIN SQ SCH ×2 (10:39→21:33)
[2020-12-25] MEDS: FAMOTIDINE 20 MG/50 ML IVPB 20 MG/50 ML MG IVPB SCH ×2 (10:39→21:33)
[2020-12-25] MEDS: DEXAMETHASONE SOD PHOSPHATE 4 MG/1 ML VIAL IVPUSH SCH (10:40)
[2020-12-25] MEDS: HYDROXYCHLOROQUINE 200 MG/8 ML ORAL SUSPENSION NGT SCH (11:51)
[2020-12-25] MEDS: VASOPRESSIN 40 UNITS in SODIUM CHLORIDE 98 ML IVPB SCH (13:16)
[2020-12-25] MEDS: VECURONIUM BROMIDE 100 MG/100 ML BAG IVPB SCH (15:42)
[2020-12-25] MEDS ORDERED: FENTANYL IVPB 500 MCG/100 ML BAG IVPB ONE (16:56)
[2020-12-25] MEDS: CHLORHEXIDINE GLUCONATE 4% CLEANSER FOR DECOLONIZATION TP SCH (21:32)
[2020-12-26] MEDS: FENTANYL NS IVPB 500 MCG/100 ML BAG IVPB SCH ×3 (01:00→23:00)
[2020-12-26] MEDS: MIDAZOLAM 100 MG/100 ML MG IVPB SCH ×2 (01:00→09:41)
[2020-12-26 07:18] LABS: BASO % 0.3 % (0-2.0); EOS % 0.6 % (0-4.5); HEMOGLOBIN 9.4 GM/dL (10.7-15.3); LYMPH % 6.2 % (8-40); MCH 27.4 pg (25.7-33.7); MCHC 32.6 g/dl (32.0-36.0); MEAN CELL VOLUME 84.1 fl (80-96); MEAN PLT VOLUME 8.9 fl (7.5-11.1); NEUT % 88.9 % (42.8-82.8); PLATELET COUNT 185 K/MM3 (134-434); RBC 3.44 M/mm3 (3.60-5.2)
[2020-12-26 07:38] LABS: POTASSIUM 4.8 mmol/L (3.5-5.1)
[2020-12-26 07:47] LABS: CALCIUM 8.2 mg/dL (8.5-10.1)
[2020-12-26 07:48] LABS: ALBUMIN 2.5 g/dl (3.4-5.0); BLOOD UREA NITROGEN 25.7 mg/dL (7-18)
[2020-12-26 07:51] LABS: CREATININE 0.4 mg/dL (0.55-1.3)
[2020-12-26 07:52] LABS: BILIRUBIN,TOTAL 0.8 mg/dL (0.2-1)
[2020-12-26 07:53] LABS: TOT PROT 5.5 g/dl (6.4-8.2)
[2020-12-26] MEDS: VECURONIUM BROMIDE 100 MG/100 ML BAG IVPB SCH (09:37)
[2020-12-26] MEDS: PROPOFOL 1,000,000 MCG/100 ML VIAL IVPB SCH (09:37)
[2020-12-26] MEDS ORDERED: PT OWN MED DRAWER 7, Y5N ONE (09:39)
[2020-12-26] MEDS: HYDROXYCHLOROQUINE 200 MG/8 ML ORAL SUSPENSION NGT SCH (09:41)
[2020-12-26] MEDS: ENOXAPARIN NA (PORCINE) 80 MG/0.8 ML DISP.SYRIN SQ SCH ×2 (09:41→21:21)
[2020-12-26] MEDS: POLYETHYLENE GLYCOL 3350 119 GM BTL PO SCH (09:41)
[2020-12-26] MEDS: DEXAMETHASONE SOD PHOSPHATE 4 MG/1 ML VIAL IVPUSH SCH (09:41)
[2020-12-26] MEDS: COLCHICINE 0.6 MG CAP PO SCH (09:41)
[2020-12-26] MEDS: FAMOTIDINE 20 MG/50 ML IVPB 20 MG/50 ML MG IVPB SCH ×2 (09:41→21:21)
[2020-12-26] MEDS: azaTHIOprine 50 MG TABLET NGT SCH (11:37)
[2020-12-26 14:30] VITALS: BMI 32.5
[2020-12-26] MEDS: VASOPRESSIN 40 UNITS in SODIUM CHLORIDE 98 ML IVPB SCH (16:23)
[2020-12-26] MEDS: CHLORHEXIDINE GLUCONATE 4% CLEANSER FOR DECOLONIZATION TP SCH (21:21)
[2020-12-27 00:26] LABS: URINE APPEARANCE CLEAR; URINE BILIRUBIN NEGATIVE (NEGATIVE); URINE COLOR YELLOW; URINE GLUCOSE (UA) 3+ (NEGATIVE); URINE KETONE NEGATIVE (NEGATIVE); URINE LEUK ESTERASE NEGATIVE (NEGATIVE); URINE NITRITE NEGATIVE (NEGATIVE); URINE PROTEIN NEGATIVE (NEGATIVE)
[2020-12-27 06:56] LABS: BASO % 0.4 % (0-2.0); HEMATOCRIT 26.5 % (32.4-45.2); HEMOGLOBIN 8.8 GM/dL (10.7-15.3); LYMPH % 4.5 % (8-40); MCH 28.1 pg (25.7-33.7); MCHC 33.2 g/dl (32.0-36.0); MEAN CELL VOLUME 84.7 fl (80-96); MEAN PLT VOLUME 8.8 fl (7.5-11.1); MONO % 3.2 % (3.8-10.2); NEUT % 90.9 % (42.8-82.8); PLATELET COUNT 151 K/MM3 (134-434); RBC 3.13 M/mm3 (3.60-5.2); RDW 16.7 % (11.6-15.6); WHITE BLOOD COUNT 9.1 K/mm3 (4.0-10.0)
[2020-12-27 07:13] LABS: POTASSIUM 4.1 mmol/L (3.5-5.1)
[2020-12-27 07:19] LABS: ALBUMIN 2.4 g/dl (3.4-5.0); BLOOD UREA NITROGEN 23.6 mg/dL (7-18); CALCIUM 7.8 mg/dL (8.5-10.1); MAGNESIUM 1.9 mg/dL (1.8-2.4)
[2020-12-27 07:22] LABS: CREATININE 0.4 mg/dL (0.55-1.3)
[2020-12-27 07:24] LABS: BILIRUBIN,TOTAL 0.7 mg/dL (0.2-1); TOT PROT 5.3 g/dl (6.4-8.2)
[2020-12-27] MEDS: FAMOTIDINE 20 MG/50 ML IVPB 20 MG/50 ML MG IVPB SCH ×2 (09:45→21:22)
[2020-12-27] MEDS: DEXAMETHASONE SOD PHOSPHATE 4 MG/1 ML VIAL IVPUSH SCH (09:47)
[2020-12-27] MEDS: ENOXAPARIN NA (PORCINE) 80 MG/0.8 ML DISP.SYRIN SQ SCH ×2 (09:47→21:22)
[2020-12-27] MEDS ORDERED: PT OWN MED DRAWER 7, Y5N ONE (09:49)
[2020-12-27] MEDS: COLCHICINE 0.6 MG CAP PO SCH (10:52)
[2020-12-27] MEDS: azaTHIOprine 50 MG TABLET NGT SCH (11:30)
[2020-12-27] MEDS: POLYETHYLENE GLYCOL 3350 119 GM BTL PO SCH (11:30)
[2020-12-27] MEDS: HYDROXYCHLOROQUINE 200 MG/8 ML ORAL SUSPENSION NGT SCH (11:30)
[2020-12-27] MEDS: PROPOFOL 1,000,000 MCG/100 ML VIAL IVPB SCH (12:08)
[2020-12-27] MEDS ORDERED: MIDAZOLAM 100 MG/100 ML MG IVPB ONE (18:04)
[2020-12-27] MEDS: VASOPRESSIN 40 UNITS in SODIUM CHLORIDE 98 ML IVPB SCH (21:17)
[2020-12-27] MEDS: CHLORHEXIDINE GLUCONATE 4% CLEANSER FOR DECOLONIZATION TP SCH (21:22)
[2020-12-27] MEDS: FENTANYL NS IVPB 500 MCG/100 ML BAG IVPB SCH (22:45)
[2020-12-28] MEDS ORDERED: FENTANYL NS IVPB 500 MCG/100 ML BAG IVPB ONE (06:50)
[2020-12-28 06:56] LABS: BASO % 0.3 % (0-2.0); EOS % 1.3 % (0-4.5); HEMATOCRIT 27.3 % (32.4-45.2); HEMOGLOBIN 9.1 GM/dL (10.7-15.3); LYMPH % 5.4 % (8-40); MCH 28.3 pg (25.7-33.7); MCHC 33.3 g/dl (32.0-36.0); MEAN PLT VOLUME 9.4 fl (7.5-11.1); MONO % 2.7 % (3.8-10.2); NEUT % 90.3 % (42.8-82.8); PLATELET COUNT 96 K/MM3 (134-434); RBC 3.21 M/mm3 (3.60-5.2); RDW 16.9 % (11.6-15.6); WHITE BLOOD COUNT 7.6 K/mm3 (4.0-10.0)
[2020-12-28 07:20] LABS: POTASSIUM 4.2 mmol/L (3.5-5.1)
[2020-12-28 07:22] LABS: CALCIUM 7.7 mg/dL (8.5-10.1)
[2020-12-28 07:23] LABS: ALBUMIN 2.4 g/dl (3.4-5.0); BLOOD UREA NITROGEN 23.1 mg/dL (7-18); MAGNESIUM 1.9 mg/dL (1.8-2.4)
[2020-12-28 07:26] LABS: CREATININE 0.3 mg/dL (0.55-1.3)
[2020-12-28 07:27] LABS: BILIRUBIN,TOTAL 0.6 mg/dL (0.2-1); TOT PROT 5.4 g/dl (6.4-8.2)
[2020-12-28] MEDS ORDERED: SODIUM CHLORIDE 1,000 ML IV SCH (08:30)
[2020-12-28] MEDS ORDERED: PT OWN MED DRAWER 7, Y5N ONE (09:22)
[2020-12-28] MEDS: FAMOTIDINE 20 MG/50 ML IVPB 20 MG/50 ML MG IVPB SCH ×2 (10:30→21:31)
[2020-12-28] MEDS: ENOXAPARIN NA (PORCINE) 80 MG/0.8 ML DISP.SYRIN SQ SCH ×2 (11:00→21:31)
[2020-12-28] MEDS: DEXAMETHASONE SOD PHOSPHATE 4 MG/1 ML VIAL IVPUSH SCH (11:30)
[2020-12-28] MEDS: COLCHICINE 0.6 MG CAP PO SCH (12:08)
[2020-12-28] MEDS: azaTHIOprine 50 MG TABLET NGT SCH (12:08)
[2020-12-28] MEDS: POLYETHYLENE GLYCOL 3350 119 GM BTL PO SCH (12:33)
[2020-12-28] MEDS: HYDROXYCHLOROQUINE 200 MG/8 ML ORAL SUSPENSION NGT SCH (12:33)
[2020-12-28] MEDS: PROPOFOL 1,000,000 MCG/100 ML VIAL IVPB SCH (12:34)
[2020-12-28] MEDS: VASOPRESSIN 40 UNITS in SODIUM CHLORIDE 98 ML IVPB SCH (17:21)
[2020-12-28] MEDS: CHLORHEXIDINE GLUCONATE 4% CLEANSER FOR DECOLONIZATION TP SCH (21:31)
[2020-12-28] MEDS: FENTANYL NS IVPB 500 MCG/100 ML BAG IVPB SCH (22:55)
[2020-12-28] MEDS: DEXMEDETOMIDINE IN 0.9 % NACL 400 MCG/100 ML VIAL IVPB SCH (23:25)
[2020-12-29] MEDS ORDERED: SODIUM CHLORIDE 0.9% 500 ML INFUS.BAG IV PRN (02:46)
[2020-12-29] MEDS ORDERED: MIDAZOLAM 100 MG/100 ML MG IVPB SCH (04:30)
[2020-12-29 07:28] LABS: HEMATOCRIT 23.8 % (32.4-45.2); HEMOGLOBIN 7.7 GM/dL (10.7-15.3); MCHC 32.4 g/dl (32.0-36.0); MEAN CELL VOLUME 86.5 fl (80-96); MEAN PLT VOLUME 9.1 fl (7.5-11.1); PLATELET COUNT 113 K/MM3 (134-434); RBC 2.75 M/mm3 (3.60-5.2); RDW 16.8 % (11.6-15.6); WHITE BLOOD COUNT 6.2 K/mm3 (4.0-10.0)
[2020-12-29 08:02] LABS: POTASSIUM 3.6 mmol/L (3.5-5.1)
[2020-12-29 08:10] LABS: ALBUMIN 2.1 g/dl (3.4-5.0); BLOOD UREA NITROGEN 21.1 mg/dL (7-18); CALCIUM 7.5 mg/dL (8.5-10.1)
[2020-12-29 08:11] LABS: MAGNESIUM 1.9 mg/dL (1.8-2.4)
[2020-12-29 08:14] LABS: CREATININE 0.3 mg/dL (0.55-1.3)
[2020-12-29 08:15] LABS: BILIRUBIN,TOTAL 0.6 mg/dL (0.2-1); TOT PROT 4.7 g/dl (6.4-8.2)
[2020-12-29] MEDS ORDERED: PT OWN MED DRAWER 7, Y5N ONE ×2 (09:19→11:30)
[2020-12-29] MEDS: FAMOTIDINE 20 MG/50 ML IVPB 20 MG/50 ML MG IVPB SCH ×2 (09:25→21:44)
[2020-12-29] MEDS: DEXAMETHASONE SOD PHOSPHATE 4 MG/1 ML VIAL IVPUSH SCH (09:25)
[2020-12-29] MEDS: COLCHICINE 0.6 MG CAP PO SCH (09:25)
[2020-12-29] MEDS: POLYETHYLENE GLYCOL 3350 119 GM BTL PO SCH (09:26)
[2020-12-29] MEDS: HYDROXYCHLOROQUINE 200 MG/8 ML ORAL SUSPENSION NGT SCH (09:26)
[2020-12-29] MEDS: ENOXAPARIN NA (PORCINE) 80 MG/0.8 ML DISP.SYRIN SQ SCH (11:03)
[2020-12-29] MEDS: azaTHIOprine 50 MG TABLET NGT SCH (12:25)
[2020-12-29] MEDS: FENTANYL NS IVPB 500 MCG/100 ML BAG IVPB SCH ×2 (12:26→22:32)
[2020-12-29] MEDS: PROPOFOL 1,000,000 MCG/100 ML VIAL IVPB SCH (12:26)
[2020-12-29] MEDS: VASOPRESSIN 40 UNITS in SODIUM CHLORIDE 98 ML IVPB SCH (15:26)
[2020-12-29] MEDS: CHLORHEXIDINE GLUCONATE 4% CLEANSER FOR DECOLONIZATION TP SCH (21:44)
[2020-12-30 07:21] LABS: BASO % 0.2 % (0-2.0); EOS % 3.5 % (0-4.5); HEMATOCRIT 26.8 % (32.4-45.2); HEMOGLOBIN 8.7 GM/dL (10.7-15.3); LYMPH % 6.8 % (8-40); MCH 28.1 pg (25.7-33.7); MCHC 32.2 g/dl (32.0-36.0); MEAN CELL VOLUME 87.1 fl (80-96); MEAN PLT VOLUME 8.9 fl (7.5-11.1); MONO % 1.8 % (3.8-10.2); NEUT % 87.7 % (42.8-82.8); PLATELET COUNT 114 K/MM3 (134-434); RBC 3.08 M/mm3 (3.60-5.2); WHITE BLOOD COUNT 7.3 K/mm3 (4.0-10.0)
[2020-12-30 07:50] LABS: POTASSIUM 3.7 mmol/L (3.5-5.1)
[2020-12-30 07:58] LABS: CALCIUM 8.1 mg/dL (8.5-10.1)
[2020-12-30 07:59] LABS: ALBUMIN 2.4 g/dl (3.4-5.0); BLOOD UREA NITROGEN 14.2 mg/dL (7-18)
[2020-12-30 08:02] LABS: CREATININE 0.2 mg/dL (0.55-1.3)
[2020-12-30 08:04] LABS: BILIRUBIN,TOTAL 0.6 mg/dL (0.2-1); TOT PROT 5.3 g/dl (6.4-8.2)
[2020-12-30] MEDS ORDERED: fentaNYL CITRATE 250 MCG/5 ML VIAL IVPUSH ONE (08:13)
[2020-12-30] MEDS ORDERED: PT OWN MED DRAWER 7, Y5N ONE ×4 (09:10→10:50)
[2020-12-30] MEDS: PROPOFOL 1,000,000 MCG/100 ML VIAL IVPB SCH ×2 (09:17→09:45)
[2020-12-30] MEDS: DEXAMETHASONE SOD PHOSPHATE 4 MG/1 ML VIAL IVPUSH SCH (09:23)
[2020-12-30] MEDS: FAMOTIDINE 20 MG/50 ML IVPB 20 MG/50 ML MG IVPB SCH ×2 (09:23→21:16)
[2020-12-30] MEDS: HYDROXYCHLOROQUINE 200 MG/8 ML ORAL SUSPENSION NGT SCH (10:51)
[2020-12-30] MEDS: azaTHIOprine 50 MG TABLET NGT SCH (10:51)
[2020-12-30] MEDS: COLCHICINE 0.6 MG CAP PO SCH (11:33)
[2020-12-30] MEDS: POLYETHYLENE GLYCOL 3350 119 GM BTL PO SCH (11:35)
[2020-12-30] MEDS ORDERED: ACETAMINOPHEN 1000 MG/100 ML VIAL (NON FORMULARY) IVPB ONE ×2 (14:16→21:34)
[2020-12-30] MEDS ORDERED: ACETAMINOPHEN INJECTION 100 ML IVPB ONE (14:41)
[2020-12-30] MEDS: VASOPRESSIN 40 UNITS in SODIUM CHLORIDE 98 ML IVPB SCH (15:13)
[2020-12-30] MEDS: DEXMEDETOMIDINE IN 0.9 % NACL 400 MCG/100 ML VIAL IVPB SCH ×3 (15:57→23:17)
[2020-12-30] MEDS: CHLORHEXIDINE GLUCONATE 4% CLEANSER FOR DECOLONIZATION TP SCH (21:16)
[2020-12-30] MEDS: FENTANYL NS IVPB 500 MCG/100 ML BAG IVPB SCH (21:17)
[2020-12-30] MEDS ORDERED: VECURONIUM BROMIDE 100 MG/100 ML BAG ONE (22:59)
[2020-12-30] MEDS ORDERED: VECURONIUM BROMIDE 10 MG/10 ML VIAL ONE (23:00)
[2020-12-30] MEDS ORDERED: VECURONIUM BROMIDE 50 MG/50 ML VIAL IVPUSH ONE (23:04)
[2020-12-30] MEDS ORDERED: VASOPRESSIN 20 UNITS/ML VIAL IV ONE (23:05)
[2020-12-30] MEDS ORDERED: LACTATED RINGERS SOLUTION 1000 ML INFUS.BAG IV ONE (23:06)
[2020-12-30] MEDS ORDERED: IBUPROFEN 800 MG/8 ML IJ IVPB ONE (23:29)
[2020-12-30] MEDS ORDERED: VANCOMYCIN 1 GRAM (PRE-DOCKED) 1,000 MG/250 ML BAG IVPB ONE (23:30)
[2020-12-30] MEDS: PIPERACILLIN/TAZOB 4.5 GM 4.5 GM in DEXTROSE 5%-WATER 100 ML IVPB SCH (23:45)
[2020-12-31] MEDS ORDERED: NOREPINEPHRINE BITARTRATE 8,000 MCG/500 ML BAG IVPB ONE ×2 (00:19→06:27)
[2020-12-31] MEDS ORDERED: NOREPINEPHRINE D5W PREMIX 16,000 MCG/500 ML BAG IVPB SCH (00:30)
[2020-12-31] MEDS ORDERED: MIDAZOLAM 100 MG/100 ML MG IVPB ONE (01:17)
[2020-12-31] MEDS ORDERED: DEXTROSE 5%-WATER 100 ML IVPB ONE (01:18)
[2020-12-31] MEDS ORDERED: PIPERACILLIN/TAZOBACTAM 4.5 GM VIAL IVPB ONE (01:18)
[2020-12-31] MEDS ORDERED: VASOPRESSIN 20 UNITS/ML VIAL IV ONE ×2 (01:21→08:05)
[2020-12-31] MEDS ORDERED: VECURONIUM BROMIDE 100 MG/100 ML BAG IVPB SCH (02:00)
[2020-12-31] MEDS ORDERED: ENOXAPARIN NA (PORCINE) 80 MG/0.8 ML DISP.SYRIN SQ SCH (02:00)
[2020-12-31] MEDS: PIPERACILLIN/TAZOB 4.5 GM 4.5 GM in DEXTROSE 5%-WATER 100 ML IVPB SCH (02:39)
[2020-12-31 02:59] VITALS: TEMP 99.2
[2020-12-31 07:02] LABS: HEMATOCRIT 30.3 % (32.4-45.2); MCH 28.3 pg (25.7-33.7); MCHC 29.8 g/dl (32.0-36.0); MEAN CELL VOLUME 95.1 fl (80-96); MEAN PLT VOLUME 9.5 fl (7.5-11.1); PLATELET COUNT 135 K/MM3 (134-434); RBC 3.18 M/mm3 (3.60-5.2); RDW 18.9 % (11.6-15.6)
[2020-12-31 07:06] LABS: WHITE BLOOD COUNT 1.1 K/mm3 (4.0-10.0)
[2020-12-31 08:13] LABS: ALBUMIN 1.8 g/dl (3.4-5.0); BILIRUBIN,TOTAL 1.3 mg/dL (0.2-1); BLOOD UREA NITROGEN 22.9 mg/dL (7-18); CALCIUM 7.6 mg/dL (8.5-10.1); CREATININE 1.3 mg/dL (0.55-1.3); MAGNESIUM 1.8 mg/dL (1.8-2.4); POTASSIUM 4.4 mmol/L (3.5-5.1); TOT PROT 4.5 g/dl (6.4-8.2)
[2020-12-31 10:20] VITALS: BP 46/37; PULSE 87
== END 2020-12-31 08:28 | disposition expired | DRG 951 ==
LOC: JER 17:02 → JERBED 18:56 → JICU 22:28
PROVIDERS: ADMIT Internal Medicine Pulmonary Disease; ATTEND Internal Medicine Pulmonary Disease
PROC: XW033E5 Introduction of Remdesivir Anti-infective into Peripheral Vein, Percutaneous Approach, New Technology Group 5 (ICD-10-PCS; 2020-12-13)
PROC: XW033H5 Introduction of Tocilizumab into Peripheral Vein, Percutaneous Approach, New Technology Group 5 (ICD-10-PCS; 2020-12-15)
PROC: 5A1955Z Respiratory Ventilation, Greater than 96 Consecutive Hours (ICD-10-PCS; principal; 2020-12-17)
PROC: 0BH17EZ Insertion of Endotracheal Airway into Trachea, Via Natural or Artificial Opening (ICD-10-PCS; 2020-12-17)
PROC: 0DH67UZ Insertion of Feeding Device into Stomach, Via Natural or Artificial Opening (ICD-10-PCS; 2020-12-17)
PROC: 3E0G76Z Introduction of Nutritional Substance into Upper GI, Via Natural or Artificial Opening (ICD-10-PCS; 2020-12-17)
PROC: 02H633Z Insertion of Infusion Device into Right Atrium, Percutaneous Approach (ICD-10-PCS; 2020-12-31)
PROC: B548ZZA Ultrasonography of Superior Vena Cava, Guidance (ICD-10-PCS; 2020-12-31)
DX: U07.1 COVID-19 (principal); M32.9 Systemic lupus erythematosus, unspecified; J96.01 Acute respiratory failure with hypoxia; J12.82 Pneumonia due to coronavirus disease 2019; D69.6 Thrombocytopenia, unspecified; M34.9 Systemic sclerosis, unspecified; N39.0 Urinary tract infection, site not specified; B96.4 Proteus (mirabilis) (morganii) as the cause of diseases classified elsewhere
CPT/HCPCS: 31500; 36415; 36600; 71045-TC-FY; 80048; 80053; 80074; 81003; 82248; 82728; 82803; 82962; 83605; 83615; 83735; 84100; 84484; 84703; 85025; 85027; 85379; 85610; 85651; 85730; 86038; 86140; 86162; 86225; 86480; 86769; 86850; 86900; 86901; 87040; 87070; 87077; 87086; 87186; 87205; 87804; 87899; 93005; 93010; 94002; 94660; 99291; C9399; C9803; J0131; J1100; J3262; U0003